=== PATIENT | male | born 1970 | race Caucasian/White ===

== ENCOUNTER 2020-04-06 00:29 | Outpatient (CLI) | payer BC, SELFPAY ==
[2020-04-06 20:03] LABS: SARS-CoV-2 RNA PCR Negative
== END 2020-04-06 00:30 | disposition home or self-care (01) ==
LOC: ANHCOVIDDT 00:29
PROVIDERS: PCP Emergency Medicine; Visit Provider Internal Medicine Gastroenterology
DX: Z01.812 Encounter for preprocedural laboratory examination (principal); Z20.828 Contact with and (suspected) exposure to other viral communicable diseases
CPT/HCPCS: 87635; C9803; U0003

== ENCOUNTER 2020-04-08 01:03 | Day surgery (SDC) | payer BC, SELFPAY ==
[2020-03-30 09:58] VITALS: BMI 30.4
--- NOTE | 2020-04-08 09:44 | PM.HPGS ---
History of Present Illness History of Present Illness Consent: Risks, benefits, and alternatives have been discussed and questions answered. Patient agrees to proceed with procedure. Chief complaint: Neoplasm Screening Narrative: Yoshi Swan Sr. is a 49 year old W male referred for his 1st screening colonoscopy. Patient is asymptomatic there is no family history of colon cancer. [facility] Past Medical History Medical History (Updated 04/08/20 @ 09:45 by Colten Aponte MD) Diabetes Social History Social History Smoking status: Never smoker Alcohol intake: never Substance use: never Substance use type: does not use Living arrangements: with family Spiritual care concerns: No Meds Home Medications and Allergies Home Medications Medication Instructions Recorded Confirmed Type metformin 1,000 mg PO DAILY 03/30/20 03/30/20 History Allergies Allergy/AdvReac Type Severity Reaction Status Date / Time No Known Allergies Allergy Mild Verified 04/08/20 09:46 Exam Const: Orientation/consciousness: patient oriented x3 Resp: Auscultation: clear to auscultation bilaterally Cardio: Rate: regular rate Rhythm: regular rhythm Heart sounds: no murmurs GI: GI Palp: Yes Soft to palpation, No Tenderness to palpation present (GI), Yes No hepatosplenomegaly present and No Palpable mass present Auscultation: normal bowel sounds Neuro: General: patient oriented x3 and no focal motor deficits Extrem: General: no pedal edema Assessment and Plan Additional Plan screening colonoscopy in average risk patient
[2020-04-08] MEDS: LACTATED RINGERS 1,000 ML 150 ML IV CONT (09:45)
[2020-04-08 09:46] VITALS: BP 169/101; PULSE 81; RESP 18; TEMP 36.4; O2SAT 99; BMI 30.5
--- NOTE | 2020-04-08 10:22 | WPDANESEPPF ---
Anes - Initial Pre Proc Eval Procedure: Operation Date: 04/08/20 10:00 Proposed Procedures p Screening Colonoscopy - Colten Aponte MD Date/Time: 04/08/20 10:22 Surgeon: Colten Aponte MD Pre Op Diagnosis: Neoplasm Screening Patient Data Age: 49 Gender: M Height: 6 ft Weight: 102.1 kg Last Vital Signs Temp 97.5 F L 04/08/20 09:46 Pulse 81 04/08/20 09:46 Resp 18 04/08/20 09:46 BP 169/101 H 04/08/20 09:46 Pulse Ox 99 04/08/20 09:46 Allergies Allergy/AdvReac Type Severity Reaction Status Date / Time No Known Allergies Allergy Mild Verified 04/08/20 09:46 Home Medications Medication Instructions Recorded Confirmed Type metformin 1,000 mg PO DAILY 03/30/20 04/08/20 History Patient hx anesthesia problems: none Family hx anesthesia problems: none [facility] Past Medical History Medical History (Updated 04/08/20 @ 09:45 by Colten Aponte MD) Diabetes Social History Social History Smoking status: Never smoker Alcohol intake: never Substance use: never Substance use type: does not use Living arrangements: with family Spiritual care concerns: No Anes - Eval Final PreProcedure Day of Procedure 04/08/20 10:22 Patient weight: normal Heart: regular rate and rhythm Lungs: clear to auscultation Airway: Mallampati scale class II Neurological: alert and oriented Last oral intake: >/= 8 hours ASA classification: II Emergent: no Anesthetic plan: proceed Anesthesia type and monitoring: general GIVS and standard monitoring Informed Consent: The patient's anesthetic plan and its attendant risks and benefits were discussed with the patient/family/POA. Questions were solicited and answers provided to the satisfaction of the patient/family/POA.
[2020-04-08 10:40] LABS: Glucose Point of Care 180 (65-105)
[2020-04-08 10:54] VITALS: BP 131/78; PULSE 76; RESP 18; O2SAT 96
[2020-04-08 11:04] VITALS: BP 122/77; PULSE 67; RESP 18; O2SAT 98
[2020-04-08 11:14] VITALS: BP 141/89; PULSE 68; RESP 20; O2SAT 99
== END 2020-04-08 11:26 | disposition home or self-care (01) ==
PROVIDERS: PCP Emergency Medicine; Visit Provider Internal Medicine Gastroenterology
PROC: 0DJD8ZZ Inspection of Lower Intestinal Tract, Via Natural or Artificial Opening Endoscopic (ICD-10-PCS; CPT 45378; principal; 2020-04-08 10:00)
DX: Z12.11 Encounter for screening for malignant neoplasm of colon (principal); E11.9 Type 2 diabetes mellitus without complications; Z79.84 Long term (current) use of oral hypoglycemic drugs
CPT/HCPCS: 45378; J2405; J7120

== ENCOUNTER → 2021-09-13 11:41 | Outpatient (CLI) | payer BC, SELFPAY ==
--- NOTE | ~2021-09-13 | XR_ITS ---
XR chest 2V DATE: 09/13/2021 16:59 INDICATION: Cough TECHNIQUE: 2 views COMPARISON: None FINDINGS: Normal heart size. No hilar or mediastinal enlargement. There is patchy infiltrate in the right mid and to a greater extent left lower lung ambriz, suggestin g bilateral pneumonia. No pleural effusion or pulmonary venous congestion or pneumothorax. IMPRESSION: Patchy right mid and left lower lung infiltrates, suggesting bilateral pneumonia Reviewed, dictated and finalized at location A. OGRAPHY SPOTTER IMPRESSION: Patchy right mid and left lower lung infiltrates, suggesting bilate ral pneumonia
== END ==
PROVIDERS: Visit Provider Emergency Medicine
DX: U07.1 COVID-19 (principal); R05.9 Cough, unspecified
CPT/HCPCS: 71046

== ENCOUNTER 2021-10-19 11:35 | Outpatient (CLI) | payer BC, SELFPAY ==
--- NOTE | ~2021-10-19 | MR_ITS ---
EXAMINATION: MR brain/brain stem wo/w con EXAM DATE: 10/19/2021 12:28 INDICATION: Stroke, Facial Paralysis, Dysarthria . TECHNIQUE: Magnetic resonance imaging (MRI) of the brain/brain stem obtained without contrast. Sagit tayler T1, axial diffusion, gradient echo (T2*), T1, T2, FLAIR sequences obtained. Patient was then inj ected with 19 cc intravenous Multihance contrast. Axial and coronal postcontrast T1 weighted sequence s obtained. There is no prior study for comparison. FINDINGS: There is acute infarction in the left periventricular white matter extending toward the sub insular cortex measuring 2 cm, a lacunar infarction. There is mild microangiopathy. No acute intracra nial hemorrhage, brain mass, extra-axial collections or obstructive hydrocephalus. There are no areas of abnormal enhancement on the post contrast images. Orbits are unremarkable. IMPRESSION: Acute left periventricular/basal ganglia lacunar infarction, large for central location. Reviewed, dictated and finalized at location A.
[2021-10-19 12:03] LABS: Estimated Glomerular Filt Rate > 60
== END 2021-10-19 11:36 | disposition home or self-care (01) ==
PROVIDERS: PCP Emergency Medicine; Visit Provider Emergency Medicine
DX: I63.9 Cerebral infarction, unspecified (principal); G83.9 Paralytic syndrome, unspecified; R47.1 Dysarthria and anarthria
CPT/HCPCS: 70553; A9577

== ENCOUNTER → 2022-06-17 07:22 | Outpatient (CLI) | payer BC, SELFPAY ==
--- NOTE | ~2022-06-17 | XR_ITS ---
EXAMINATION: XR chest 2V 06/17/2022 07:48 INDICATION: Cough PROCEDURE: 2 view chest COMPARISON: 09/13/2021 FINDINGS: The lungs are clear. The cardiomediastinal silhouette is within normal limits. There are no pleural effusions. There is no pneumothorax suspected. IMPRESSION: 1: NO ACUTE CARDIOPULMONARY DISEASE. Reviewed, dictated and finalized at location A. [employer]LOADING SUPERVISOR
== END ==
PROVIDERS: PCP Emergency Medicine; Visit Provider Emergency Medicine
DX: U07.1 COVID-19 (principal); R05.9 Cough, unspecified
CPT/HCPCS: 71046

== ENCOUNTER 2024-02-19 08:22 | Day surgery (SDC) | payer OTHER, SELFPAY ==
[2024-02-19] VITALS (10 sets, daily range): BP systolic 128–164; BP diastolic 71–95; PULSE 75–95; RESP 12–20; TEMP 36.6–37.2; O2SAT 94–100
--- NOTE | ~2024-02-19 | US_ITS ---
EXAMINATION: US scrotum doppler DATE: 02/19/2024 11:21 INDICATION: Testicular pain. TECHNIQUE: Grayscale and Doppler ultrasound images of the testes were obtained. COMPARISON: None. FINDINGS: The right testis measures 4.1 x 1.8 x 3.3 cm. The left testis measures 3.8 x 2.0 x 3.7 cm. There is normal vascular flow to both testes. The right epididymis is normal with normal vascular laquita w. The left epididymis is normal with normal vascular flow. There is no varicocele or hydrocele. IMPRESSION: 1. Normal testes. Reviewed, dictated and finalized at location A. IMPRESSION: 1. Normal testes.
--- NOTE | ~2024-02-19 | CT_ITS ---
EXAMINATION: CT abdomen pelvis w con DATE: 02/19/2024 10:30 INDICATION: Right groin pain. TECHNIQUE: Computed tomography (CT) of the abdomen and pelvis was performed with 100 mL Omnipaque 350 intravenous contrast. Automated exposure control and iterative reconstruction technique were employe d. The dose-length product was 1072.85 mGy-cm. COMPARISON: CT pelvis 05/26/2013 FINDINGS: The visualized portions of the lung bases demonstrate minimal atelectasis. No pleural effus ion. The heart size is normal. No pericardial effusion. There is mild bilateral gynecomastia. The gabe er, gallbladder, spleen, pancreas, adrenal glands, and left kidney are normal. There is a delayed rig ht-sided contrast nephrogram. There is a 6 mm stone in right kidney. There is mild right hydronephros is and hydroureter. There is a 6 mm stone in distal right ureter. There is a right inguinal hernia co ntaining fat. There are no dilated loops of bowel. The appendix is normal. There are no pathologicall y enlarged lymph nodes. There is no free intraperitoneal fluid. There are widespread arterial calcifi cations. There is mild thoracic and lumbar spondylosis. IMPRESSION: 1. 6 mm stone in distal right ureter with mild right hydronephrosis and hydroureter. 2. 6 mm nonobstructing right kidney stone. 3. Right inguinal hernia containing fat. Reviewed, dictated and finalized at location A. IMPRESSION: 1. 6 mm stone in distal right ureter with mild right hydronephrosis and hydrour eter. 2. 6 mm nonobstructing right kidney stone. 3. Right inguinal hernia containing fat.
--- NOTE | ~2024-02-19 | XR_ITS ---
EXAMINATION: XR retrograde pyelo w/stent RT DATE: 02/19/2024 15:40 CDT INDICATION: RIGHT STONE EXTRACTION . TECHNIQUE: 4 fluoroscopic images of the right abdomen and pelvis were obtained during right retrograd e pyelography with stone extraction and stent placement, performed by Justin Cooper MD. I wa s not present during the procedure. Fluoroscopy exposure time was 20.5 seconds. Air Kerma 8.97 mGy. D AP [id number] mGym2. COMPARISON: None FINDINGS/IMPRESSION: Fluoroscopic documentation of right retrograde pyelography with stone extraction and stent placement. Please refer to the operative note for complete procedural details . Reviewed, dictated and finalized at location K.
[2024-02-19 09:49] LABS: Basophils Absolute Auto 0.1 K/mm3 (0.0-0.1); Basophils Percent Auto 0.5 % (0.2-1.2); Eosinophils Percent Auto 0.4 % (0-4.4); Hematocrit 42.3 % (42.0-52.0); Hemoglobin 13.9 g/dL (14.0-18.0); Immature Granulocyte Absolute 0.04 K/mm3 (0.00-0.031); Immature Granulocyte Percent A 0.4 % (0-0.5); Lymphocytes Absolute Auto 1.57 K/mm3 (0.9-3.2); Lymphocytes Percent Auto 14.2 % (18.3-44.2); Mean Corpuscular HGB Conc 32.9 g/dl (32-36); Mean Corpuscular Hemoglobin 29.8 pg (26-34); Mean Corpuscular Volume 90.8 fl (80-100); Mean Platelet Volume 11.4 fl (7.4-10.4); Monocytes Absolute Auto 0.6 K/mm3 (0.1-0.6); Monocytes Percent Auto 5.2 % (2.6-8.5); Neutrophils Absolute Auto 8.8 K/mm3 (1.3-6.7); Neutrophils Percent Auto 79.3 % (45.5-73.1); Platelet Count Result 266 k/mm3 (150-375); Red Blood Count 4.66 M/mm3 (4.6-6.20); Red Cell Distribution Width 12.8 % (11.5-14.5); White Blood Count 11.1 K/mm3 (4.5-10.0)
[2024-02-19 09:54] LABS: Add Urine Microscopic? YES; Appearance Urine Clear (Clear); Bacteria Urine None Seen /hpf; Bilirubin Urine Negative (Negative); Blood Urine 2+ (Negative); Color Urine Yellow (Yellow); Glucose Urine UA 3+ mg/dL (Negative); Ketones Urine 3+ mg/dL (Negative); Leukocyte Esterase Ur Negative LEU/UL (Negative); Nitrate Urine Negative (Negative); Non Pathogenic Casts 0-2; Protein Urine Trace mg/dL (Negative); Squamous Epithelial Cell Urine None Seen /hpf (Few); Urobilinogen Urine 0.2 mg/dL (<2.0); WBC Urine 0-5 /hpf (0-3)
[2024-02-19] MEDS: SODIUM CHLORIDE 0.9% IV 1,000 ML 999 ML IV CONT ×2 (09:54→11:37)
[2024-02-19] MEDS: ONDANSETRON INJ 4 MG/2 ML VIAL IV PUSH ×2 (09:55→11:38)
[2024-02-19] MEDS: MORPHINE SULFATE (*CRX) 4 MG/ML INJ IV PUSH (09:56)
[2024-02-19] MEDS: FAMOTIDINE 20 MG/2 ML VIAL IV PUSH (09:59)
[2024-02-19 10:03] LABS: Alanine Aminotransferase 29 U/L (6-50); Albumin Level 5.1 g/dL (3.5-5.1); Alkaline Phosphatase 85 U/L (38-126); Anion Gap 17 mmol/L (4-12); Aspartate Amino Transferase 35 U/L (17-59); Bilirubin,Total 1.3 mg/dL (0.2-1.3); Blood Urea Nitrogen 33 mg/dL (9-20); Calcium 9.7 mg/dL (8.4-10.2); Carbon Dioxide 23 mmol/L (22-30); Chloride 97 mmol/L (98-107); Estimated CRCL calculation 74 ml/min; Estimated Glomerular Filt Rate 58; Glucose 201 mg/dL (65-110); Potassium 4.4 mmol/L (3.4-5.0); Sodium 137 mmol/L (137-145)
--- NOTE | 2024-02-19 10:10 | ED.GENADULT ---
HPI - General Adult General Chief complaint: Nausea/Vomiting/Diarrhea Stated complaint: extreme groin pain Time Seen by Provider: 02/19/24 09:04 History of Present Illness HPI narrative: Yoshi Swan is a 53 y/o male who presents today with reports of being in his normal states of health up until he was at work this AM started to have pain to his scrotum then pain up to his right lower abdomen and right side then started to have nausea / vomiting. He reports hx of DM No previous abdominal surgeries Related Data Home Medications Medication Instructions Recorded Confirmed metformin 1,000 mg tablet 1,000 mg PO DAILY 03/30/20 02/19/24 apixaban 5 mg tablet (Eliquis) 5 mg PO BID 02/19/24 02/19/24 Allergies Allergy/AdvReac Type Severity Reaction Status Date / Time No Known Allergies Allergy Mild Verified 02/19/24 13:41 Review of Systems Review of Systems: CONSTITUTIONAL: Denies fever, chills, or sweats. EYES: Denies visual changes, redness, or discharge. ENT: Denies rhinorrhea, congestion, sore throat, or otalgia. CARDIOVASCULAR: Denies chest pain, palpitations, or edema. RESPIRATORY: Denies cough or dyspnea. GASTROINTESTINAL: Reports right lower abdominal pain, nausea, vomiting, that started this AM SKIN: Denies rash or itching. MUSCULOSKELETAL: Denies back pain, joint pain, or myalgia. NEUROLOGIC: Denies headache, numbness, dizziness, or weakness. PSYCHIATRIC: Denies anxiety or depression. PMFSH Past Medical History Medical History (Updated 02/19/24 @ 14:10 by Wally Romero MD) Diabetes Obesity Social History Social History Smoking status: Never smoker Alcohol intake: never Substance use: never Substance use type: does not use Living arrangements: with family Spiritual care concerns: No Exam Narrative: GENERAL: Well-appearing, well-nourished, and in no acute distress. HEAD: Normocephalic, atraumatic. EYES: PERRLA and EOMI. ENT: Nares clear, no rhinorrhea or epistaxis. Mucous membranes moist. Oropharynx without tonsillar hypertrophy exudate or other lesions. NECK: Supple. No adenopathy or masses. No carotid bruits or JVD CHEST: Clear to auscultation. No respiratory distress. No wheezes rales or rhonchi HEART: Regular rate and rhythm. No murmur heard. Normal peripheral pulses. ABDOMEN: Soft, , nondistended, normal hypoactive bowel sounds. EXTREMITIES: Normal range of motion. No edema. SKIN: Warm, dry, no rash. NEURO: No focal deficits. Alert and oriented x3. PSYCH: Normal mood and affect. Course Vital Signs Vital signs: Vital Signs Temperature 36.6 C 02/19/24 08:33 Pulse Rate 75 02/19/24 08:33 Respiratory Rate 20 02/19/24 08:33 Blood Pressure 164/84 H 02/19/24 08:33 Pulse Oximetry 100 02/19/24 08:33 Oxygen Delivery Room Air 02/19/24 08:33 Temperature 36.8 C 02/19/24 16:23 Pulse Rate 79 02/19/24 17:29 Respiratory Rate 16 02/19/24 17:29 Blood Pressure 137/71 02/19/24 17:29 Pulse Oximetry 98 02/19/24 16:52 Oxygen Delivery Room Air 02/19/24 17:29 Oxygen Flow Rate 8 02/19/24 16:38 Medical Decision Making MDM Narrative Medical decision making narrative: 53 y/o male with sudden onset of scrotum pain/ right lower abdominal pain/ right side pain then nausea/vomiting - conitnues to have active emesis in the ER He states he woke up feeling his normal well self until shortly after arriving to work No previous abdominal surgeries Hypoactive bowel sounds - abdomen soft he states the pain is not reproducible with palpation No scrotal/ testicular swelling Concern for : incarcerated hernia / ureterolithiasis / obstructing ureterolithiasis/ appendicitis/ perforated bowel / SBO / Plan to check labs/ CT while treating him with IV fluids/ antiemetics and pain control CBC- + leukocytosis 11.1 - hemodynamically stable CMP- Anion Gap 17, BUN 33, GFR 58 Lactate 2.4 UA - 3+
[2024-02-19 11:27] LABS: Lactic Acid Reflex 2.4 mmol/L (0.7-2.0); Lipase 180 U/L (23-300)
[2024-02-19] MEDS: HYDROmorphone HCL INJ (*CRX) 1 MG/ML SYR IV PUSH (11:39)
--- NOTE | 2024-02-19 11:43 | PC.NURSE ---
Pt reports oral intake between 0500 and 0545 states he had a little water but threw it up. States he last ate last night at 1800
[2024-02-19 12:45] LABS: Glucose Point of Care 155 mg/dl (65-105)
--- NOTE | 2024-02-19 13:03 | WPDURCON ---
Assessment and Plan Assessment and plan (1) Right ureteral calculus: Code(s): N20.1 - Calculus of ureter Status: Acute Assessment and Plan: proceed with cystoscopy, right retrograde pyelogram, right ureteroscopy with stone extraction, possible laser, stent placement Urology Consult Note HPI Date Seen: 02/19/24 Time Seen: 13:03 Primary Care Provider: Erick Liao MD Consult Narrative Reason for consult: Obstructing 6 mm right ureteral calculus Narrative: Yoshi Swan Sr. is a 53 year old male who presented to the emergency room with right renal colic nausea vomiting. His pain initially started in scrotum. His scrotal ultrasound was negative. CT scan reveals a 6 mm distal right ureteral calculus. He also has another 6 mm right lower pole stone which is nonobstructive in nature. Urinalysis does not appear infected. Given his persistent pain we have opted to proceed with cystoscopy, right retrograde pyelogram, right ureteroscopy with stone extraction, possible laser and stent placement Review of Systems Review of Systems: All systems reviewed & are unremarkable except as noted in HPI and below PMFSH Past Medical History Medical History Diabetes Social History Social History Smoking status: Never smoker Alcohol intake: never Substance use: never Substance use type: does not use Living arrangements: with family Spiritual care concerns: No Meds Home Medications and Allergies Home Medications Medication Instructions Recorded Confirmed Type metformin 1,000 mg tablet 1,000 mg PO DAILY 03/30/20 04/08/20 History Allergies Allergy/AdvReac Type Severity Reaction Status Date / Time No Known Allergies Allergy Mild Verified 02/19/24 08:38 Vital Signs Vital Signs - 24 hr 02/19/24 08:33 02/19/24 09:59 02/19/24 11:41 Temperature 36.6 C Pulse Rate 75 86 94 Respiratory Rate 20 15 12 Blood Pressure 164/84 H 162/94 H 160/90 H Pulse Oximetry 100 100 97 Oxygen Delivery Room Air 02/19/24 12:28 Temperature 37.0 C Pulse Rate 95 Respiratory Rate 16 Blood Pressure 145/93 H Pulse Oximetry 94 Oxygen Delivery Exam Const: General: cooperative Resp: Effort & Inspection: normal respiratory effort Cardio: Rate: regular rate Rhythm: regular rhythm Results Labs 02/19/24 09:34 02/19/24 09:34 Labs: Short CBC 02/19/24 Range/Units 09:34 WBC 11.1 H (4.5-10.0) K/mm3 Hgb 13.9 L (14.0-18.0) g/dL Hct 42.3 (42.0-52.0) % Plt Count 266 (150-375) k/mm3 BMP 02/19/24 09:34 Sodium 137 Potassium 4.4 Chloride 97 L Carbon Dioxide 23 BUN 33 H Creatinine 1.30 Glucose 201 H Calcium 9.7 Liver Function 02/19/24 Range/Units 09:34 Total Bilirubin 1.3 (0.2-1.3) mg/dL AST 35 (17-59) U/L ALT 29 (6-50) U/L Alkaline Phosphatase 85 (38-126) U/L Albumin 5.1 (3.5-5.1) g/dL Urine 02/19/24 Range/Units 09:34 Urine Color Yellow (Yellow) Urine Appearance Clear (Clear) Urine pH 6.0 (5.0-9.0) Ur Specific [place] 1.020 (1.001-1.035) Urine Protein Trace (Negative) mg/dL Urine Glucose (UA) 3+ H (Negative) mg/dL
--- NOTE | 2024-02-19 13:08 | WPDHPUPDATE1 ---
History and Physical Update Update Date/Time: 02/19/24 13:08 History and Physical has been reviewed, including an updated exam of the patient. There are NO changes in the patient's condition. Risks, benefits, and alternatives have been discussed and questions answered. Patient agrees to proceed with procedure.
--- NOTE | 2024-02-19 14:05 | WPDANESEPPF ---
Anes - Initial Pre Proc Eval Procedure: Operation Date: 02/19/24 15:15 Proposed Procedures p Cystoscopy, Right Ureteroscopy, Possible Right Retrograde Pyelogram, Possible Right Stone Extraction, Possible Right Stent Placement, Possible Holmium Laser Procedure - Justin Cooper MD Date/Time: 02/19/24 14:05 Surgeon: Justin Cooper MD Pre Op Diagnosis: extreme groin pain Patient Data Age: 53 Gender: M Height: 1.83 m Weight: 109 kg Last Vital Signs Temp 37.2 C 02/19/24 13:36 Pulse 94 02/19/24 13:36 Resp 14 02/19/24 13:36 BP 150/78 H 02/19/24 13:36 Pulse Ox 100 02/19/24 13:36 O2 Del Method Room Air 02/19/24 13:36 Allergies Allergy/AdvReac Type Severity Reaction Status Date / Time No Known Allergies Allergy Mild Verified 02/19/24 13:41 Home Medications Medication Instructions Recorded Confirmed Type metformin 1,000 mg tablet 1,000 mg PO DAILY 03/30/20 02/19/24 History apixaban 5 mg tablet (Eliquis) 5 mg PO BID 02/19/24 02/19/24 History Laboratory Tests 02/19/24 02/19/24 02/19/24 09:34 11:09 12:42 WBC 11.1 H K/mm3 (4.5-10.0) RBC 4.66 M/mm3 (4.6-6.20) Hgb 13.9 L g/dL (14.0-18.0) Hct 42.3 % (42.0-52.0) MCV 90.8 fl (80-100) MCH 29.8 pg (26-34) MCHC 32.9 g/dl (32-36) RDW 12.8 % (11.5-14.5) Plt Count 266 k/mm3 (150-375) MPV 11.4 H fl (7.4-10.4) Immature Gran % (Auto) 0.4 % (0-0.5) Neut % (Auto) 79.3 H % (45.5-73.1) Lymph % (Auto) 14.2 L % (18.3-44.2) [place] % (Auto) 5.2 % (2.6-8.5) Eos % (Auto) 0.4 % (0-4.4) Baso % (Auto) 0.5 % (0.2-1.2) Lymph # (Auto) 1.57 K/mm3 (0.9-3.2) [place] # (Auto) 0.6 K/mm3 (0.1-0.6) Eos # (Auto) 0.0 K/mm3 (0-0.3) Baso # (Auto) 0.1 K/mm3 (0.0-0.1) Abs Immat Gran (auto) 0.04 H K/mm3 (0.00-0.031) Absolute Neuts (auto) 8.8 H K/mm3 (1.3-6.7) Absolute Nucleated RBC 0.000 K/mm3 (0.0-0.012) Nucleated RBC % 0.0 % (0.0-0.2) Sodium 137 mmol/L (137-145) Potassium 4.4 mmol/L (3.4-5.0) Chloride 97 L mmol/L (98-107) Carbon Dioxide 23 mmol/L (22-30) Anion Gap 17 H mmol/L (4-12) BUN 33 H mg/dL (9-20) Creatinine 1.30 mg/dL (0.7-1.3) Estim Creat Clear Calc 74 ml/min Estimated GFR 58 L (59 - ) Glucose 201 H mg/dL (65-110) POC Capillary Glucose 155 H mg/dl (65-105) Lactic Acid 2.4 H mmol/L (0.7-2.0) Calcium 9.7 mg/dL (8.4-10.2) Total Bilirubin 1.3 mg/dL (0.2-1.3) AST 35 U/L (17-59) ALT 29 U/L (6-50) Alkaline Phosphatase 85 U/L (38-126) Total Protein 8.0 g/dL (6.3-8.2) Albumin 5.1 g/dL (3.5-5.1) Lipase 180 U/L (23-300) Urine Color Yellow (Yellow) Urine Appearance Clear (Clear) Urine pH 6.0 (5.0-9.0) Ur Specific [place] 1.020 (1.001-1.035) Urine Protein Trace mg/dL (Negative) Urine Glucose (UA) 3+ H mg/dL (Negative) Urine Ketones 3+ H mg/dL (Negative) Ur Blood (Man) 2+ H (Negative) Urine Nitrate Negative (Negative) Urine Bilirubin Negative (Negative) Urine Urobilinogen 0.2 mg/dL (<2.0) Leukocyte Esterase Rfl Negative KIMBERLY/UL (Negative) Urine RBC 11-20 H /hpf (0-2) Urine WBC 0-5 /hpf (0-3) Ur Squamous Epith Cells None seen /hpf (Few) Urine Bacteria None seen /hpf Urine Casts 0-2 Patient hx anesthesia problems: none Family hx anesthesia problems: none Results Review: All pre-operative results and documents have been reviewed as part of the
[2024-02-19 14:15] LABS: Reflex Lactic Acid Yes or No Add Lactic
--- NOTE | 2024-02-19 14:23 | SUR.PREOP ---
PT IS ON ELIQUIS, MISS THIS AM DOSE. DR DAVIS AWARE. NO ORDERS AT THIS TIME.
[2024-02-19] MEDS: ceFAZolin 2 GM/D5W 50 ML 2 GM/50 ML BAG IVPB (16:05)
[2024-02-19] MEDS: LIDOCAINE HCL 2% GEL UROJET 10 ML PKG MUCOUS MEM (16:15)
--- NOTE | 2024-02-19 16:17 | W.PM.PROC2 ---
Procedure Note - Detailed Date of Procedure 02/19/24 Pre-op Diagnosis Right ureteral calculus with colic Post-op Diagnosis Same Procedure Performed Cystoscopy, right retrograde pyelogram, right ureteroscopy with holmium laser, stone extraction, ureteral stent placement 4.8 Hungarian contour Surgeon Justin Cooper MD Anesthesia General Description of Procedure Patient is taken to the operative suite correctly identified. Once anesthesia was obtained was placed in dorsal lithotomy position and prepped and draped usual sterile fashion. Nineteen Hungarian scope was inserted the bladder direct vision. There were no urethral strictures. His prostate has some mild lateral lobe hypertrophy. He also has an elevated median bar/bladder neck. The bladder itself was without any evidence of tumors. The right ureteral orifice was cannulated with the Sensor wire. I dilated the orifice with an 8/10 dilator. Rigid ureteral scope was then inserted. Stone was visualized in too large to retrieve 1 piece. Using a 200 micron fiber the stone was lasered in multiple small pieces. The largest fragments were sent for analysis. Escape basket was used to retrieve these. Pyelogram was then performed to confirm placement of the stent. 4.8 Hungarian contour stent was then placed with the proximal end coiled in the renal pelvis and the distal in the bladder. A near Horan was used to evacuate some of the stone fragments. I should cell state that his intramural ureter was extremely tight. 2% viscous lidocaine was inserted into the urethra. Patient is taken recovery stable condition. We discharged home and follow-up in a week's time for with KUB and stent removal. He also has a known right lower pole stone which be addressed at a later point time. This completes dictation. Please send a copy of op note to my office. Estimated Blood Loss 0 Drains Yes Packing No Pathology Yes Complications No immediate complications Condition Stable Disposition PACU
[2024-02-19] MEDS: LACTATED RINGERS 1,000 ML 30 ML IV CONT ×2 (16:23)
[2024-02-19 17:21] LABS: Glucose Point of Care 99 mg/dl (65-105)
--- NOTE | 2024-02-19 17:43 | SUR.PHASEII ---
1740: patient is dressed, iv dc'd, waiting on ride to arrive.
== END 2024-02-19 18:05 | disposition home or self-care (01) ==
LOC: ANHED 11:44 → ANHSURGERY 13:32
PROVIDERS: Emergency Medicine; Emergency Provider Nurse Practitioner Family; PCP Emergency Medicine; Visit Provider Urology
PROC: (CPT 52352; principal; 2024-02-19 15:15)
DX: N13.2 Hydronephrosis with renal and ureteral calculous obstruction (principal); Z79.01 Long term (current) use of anticoagulants; Z79.84 Long term (current) use of oral hypoglycemic drugs; E66.9 Obesity, unspecified; Z68.32 Body mass index [BMI] 32.0-32.9, adult; N39.0 Urinary tract infection, site not specified
CPT/HCPCS: 52356; 36415; 74177; 74420; 76870; 80053; 81001; 82365; 82948; 83605; 83690; 85025; 88300; 93976; 96361; 96374; 96375; 96376; 99285; C1769; C2617; J0690; J1100; J1170; J2250; J2270; J2405; J2704; J3010; J7030; J7120; Q9966; Q9967

== ENCOUNTER 2024-02-25 09:47 | Outpatient (CLI) | payer OTHER, SELFPAY ==
--- NOTE | ~2024-02-25 | XR_ITS ---
XR abdomen/kub 1V Ordering provider: Justin Cooper MD History: . KIDNEY CALCULI . Comparison: None. FINDINGS: BOWEL: Fecal material in the colon suggestive of constipation. Nonobstructive bowel gas pattern. ORGANOMEGALY: None. SIGNIFICANT PATHOLOGIC CALCIFICATIONS: Stone in the right kidney lower pole. Right double-J stent. OTHER: Left sacroiliitis. No free air is seen under the diaphragm. IMPRESSION: NO ACUTE ABDOMINAL FINDINGS. Stone in the right kidney lower pole with the right double-J stent. Constipation. Reviewed, dictated and finalized at location A.
== END 2024-02-25 09:48 | disposition home or self-care (01) ==
LOC: ANHIMG 09:51
PROVIDERS: PCP Emergency Medicine; Visit Provider Urology
DX: N20.0 Calculus of kidney (principal); K59.00 Constipation, unspecified; Z96.0 Presence of urogenital implants
CPT/HCPCS: 74018

== ENCOUNTER 2024-03-07 16:29 | Outpatient (CLI) | payer OTHER, SELFPAY ==
[2024-03-07 17:09] LABS: INR 1.1; Partial Thromboplastin Time 32.8 Seconds (22.3-36.8); Prothrombin Time 14.2 Seconds (11.1-14.7)
== END 2024-03-07 16:30 | disposition home or self-care (01) ==
LOC: ANHLAB 16:31
PROVIDERS: PCP Emergency Medicine; Visit Provider Urology
DX: Z01.818 Encounter for other preprocedural examination (principal); N20.1 Calculus of ureter
CPT/HCPCS: 36415; 85610; 85730; 87086

== ENCOUNTER 2024-03-12 15:38 | Outpatient (CLI) | payer OTHER, SELFPAY ==
--- NOTE | 2024-03-12 16:09 | ECG_ITS ---
Test Date: 2024-03-12 16:14:37 Measurements Intervals [place] Rate: 79 P: 49 SD: 160 QRS: 32 QRSD: 95 T: 53 QT: 375 QTc: 432 Interpretive Statements SINUS RHYTHM NORMAL ELECTROCARDIOGRAM No previous ECG available for comparison Electronically Signed On 03-13-2024 13:12:32 CDT by Saran Quinteros M.D.
== END 2024-03-12 15:39 | disposition home or self-care (01) ==
LOC: ANHCARD 15:41
PROVIDERS: PCP Emergency Medicine; Visit Provider Anesthesiology
DX: Z01.818 Encounter for other preprocedural examination (principal); E11.9 Type 2 diabetes mellitus without complications
CPT/HCPCS: 93005

== ENCOUNTER 2024-03-14 00:30 | Day surgery (SDC) | payer OTHER, SELFPAY ==
[2024-03-07 15:35] VITALS: BMI 29.8
--- NOTE | 2024-03-07 15:55 | PC.NURSE ---
Report to the Outpatient Waiting Room, entrance under the green pavilion located off [facility], at time _08:00 on date 03/14/24____. Planned Procedure Time: _10:00 .? Time changes happen often and if your time is changed the preop area will call you the afternoon before. - You and your visitor will be asked to self-screen and do not enter if you have any COVID symptoms. Please call surgeon if you need to reschedule. - A mask is optional within the hospital at this time. Patients may have clear liquids (water, carbonated beverages, clear teas, apple juice) until 3 hours prior to surgery with a maximum of 20 ounces. - No food from midnight until time of surgery and no smoking - Infants may have breast milk until 4 hours before surgery, infant formula 6 hours prior to surgery. - Children will be allowed to drink immediately following surgery.? If applicable, please bring a bottle or sippy cup to assist with drinking. Juice, water, soda, and popsicles are readily available.? For infants on formula, please bring formula the day of surgery.? Pacifiers are allowed. Take only the following medications with a SIP of water on the morning of surgery: _Amlodipine and tramadol if needed DO NOT STOP ANY OF YOUR OTHER PRESCRIPTION MEDICATIONS PRIOR TO SURGERY EXCEPT THE FOLLOWING Medications to discontinue per physician ___Per the Office Patient is to stop vitamins and supplements 7 days prior and stop his Eliquis 3 days prior Please no make-up, nail maori, hairspray, perfume, deodorant, or body powder the day of surgery.? No jewelry (including any body piercings) or valuables the day of surgery, leave them at home.? Please take a shower or bath the night before, or the morning of, surgery with an antibacterial soap.? Wear comfortable, loose fitting clothing.? Children are encouraged to wear pajamas. - Jewelry must be removed prior to entering the operating room.? Rings and piercings that are not removed may be cut off. - The hospital will not accept responsibility for valuables.? - Please leave all valuables, including medications, at home the day of surgery. If you are going home after surgery, a licensed national dedicated truck driver must drive you home.? - NO public transportation without another adult if you receive anesthesia. - We recommend that an adult stay with you for 24 hours following discharge. - We also recommend that you do not drive, make important decision, drink alcoholic beverages, or take any drugs that were not prescribed by your health care provider for at least 24 hours after your discharge time. For Pediatric surgeries, we recommend two adults accompany the child home. Follow any additional instructions given to you from your surgeon. Telephone instructions given to _Yoshi and asked if any additional questions and then verbalized understanding. Patient advised to call surgeon office or pre surgery nurse liaison [phone] if any additional questions.
[2024-03-14] VITALS (8 sets, daily range): BP systolic 82–126; BP diastolic 52–79; PULSE 64–82; RESP 10–20; TEMP 36.3–36.6; O2SAT 97–100; BMI 30.3
--- NOTE | ~2024-03-14 | XR_ITS ---
XR abdomen/kub 1V 03/14/2024 08:28 INDICATION: Preop ESWL TECHNIQUE: KUB COMPARISON: 02/25/2024 FINDINGS: Bowel gas pattern is normal. Moderate colonic fecal loading. There is no evidence of free a ir, mass, organomegaly, ascites or obstruction. There is a right renal stone. There is a left pelvic calcification, likely phlebolith. Interval removal of right internal ureteral stent. The bones appear intact. IMPRESSION: 1: Right nephrolithiasis. Reviewed, dictated and finalized at location B. IMPRESSION: 1: Right nephrolithiasis.
--- NOTE | 2024-03-14 07:23 | WPDHPUPDATE1 ---
History and Physical Update Update Date/Time: 03/14/24 07:23 History and Physical has been reviewed, including an updated exam of the patient. There are NO changes in the patient's condition. Risks, benefits, and alternatives have been discussed and questions answered. Patient agrees to proceed with procedure.
[2024-03-14 09:08] LABS: Glucose Point of Care 120 mg/dl (65-105)
--- NOTE | 2024-03-14 09:23 | P.PNAN_ITS ---
Anes - Initial Pre Proc Eval Procedure: Operation Date: 03/14/24 10:00 Proposed Procedures p Right Ureteral Extracorporeal Shock Wave Lithotripsy - Justin Cooper MD Date/Time: 03/14/24 09:23 Surgeon: Justin Cooper MD Pre Op Diagnosis: right ureteral stone Patient Data Age: 53 Gender: M Height: 1.83 m Weight: 99.79 kg Last Vital Signs O2 Del Method Room Air 03/07/24 15:35 Allergies Allergy/AdvReac Type Severity Reaction Status Date / Time nickel AdvReac Intermediate Rash Verified 03/14/24 09:18 Home Medications Medication Instructions Recorded Confirmed Type apixaban 5 mg tablet (Eliquis) 5 mg PO BID 02/19/24 03/07/24 History tramadol 50 mg tablet 50 mg PO Q6H PRN pain #20 tabs 02/19/24 03/07/24 Rx Adults Multivitamin 1 tab-cap PO DAILY 03/07/24 03/07/24 History amlodipine 10 mg tablet 10 mg PO DAILY 03/07/24 03/14/24 History cyanocobalamin (vitamin B-12) 5,000 mcg sublingual DAILY 03/07/24 03/07/24 History 5,000 mcg sublingual tablet (Vitamin B-12) glucosamine-chondroitin 250 mg-200 1 tablet PO DAILY 03/07/24 03/07/24 History mg tablet (Osteo Bi-Flex) irbesartan 300 mg tablet 300 mg PO DAILY 03/07/24 03/07/24 History metformin 500 mg tablet,extended 1,000 mg PO HS 03/07/24 03/07/24 History release 24 hr omega-3 fatty acids 900 mg PO DAILY 03/07/24 03/07/24 History rosuvastatin 5 mg tablet 5 mg PO HS 03/07/24 03/07/24 History Laboratory Tests 03/14/24 08:43 POC Capillary Glucose 120 H mg/dl (65-105) Patient hx anesthesia problems: none Family hx anesthesia problems: none Results Review: All pre-operative results and documents have been reviewed as part of the pre- operative evaluation. [facility] Past Medical History Medical History (Updated 03/14/24 @ 09:24 by Kemar Sotelo DO) CVA (cerebral vascular accident) 2021 Diabetes Hypertension Obesity Social History Social History Smoking status: Never smoker Alcohol intake: current Alcohol use details: once a month Substance use: never Substance use type: does not use Living arrangements: with family Spiritual care concerns: No Anes - Eval Final PreProcedure Day of Procedure 03/14/24 09:23 Patient weight: overweight Heart: regular rate and rhythm Lungs: clear to auscultation Airway: Mallampati scale class II Neurological: alert and oriented Last oral intake: >/= 8 hours ASA classification: III Emergent: no Anesthetic plan: proceed Anesthesia type and monitoring: general LMA and standard monitoring Results Review: All pre-operative results and documents have been reviewed as part of the pre- operative evaluation. Informed Consent: The patient's anesthetic plan and its attendant risks and benefits were discussed with the patient/family/POA. Questions were solicited and answers provided to the satisfaction of the patient/family/POA.
[2024-03-14] MEDS: LACTATED RINGERS 1,000 ML 30 ML IV CONT (09:28)
[2024-03-14] MEDS: ceFAZolin 2 GM/D5W 50 ML 2 GM/50 ML BAG IVPB (10:20)
--- NOTE | 2024-03-14 10:54 | W.PM.PROC2 ---
Procedure Note - Detailed Date of Procedure 03/14/24 Pre-op Diagnosis right renal stone Post-op Diagnosis Same Procedure Performed Lithotripsy of right renal calculus Surgeon Justin Cooper MD Anesthesia General Description of Procedure Patient was taken the operative suite correctly identified. Once anesthesia was obtained the stone was localized in both planes. Two thousand five hundred shocks given the stone. Patient tolerated procedure well without any complications and was taken recovery stable condition. A follow-up in 7-10 days with KUB. This completes dictation. Please send a copy of op note to my office Estimated Blood Loss 0 Drains No Packing No Pathology None sent Complications No immediate complications Condition Stable Disposition PACU
[2024-03-14 11:14] LABS: Glucose Point of Care 92 mg/dl (65-105)
== END 2024-03-14 12:41 | disposition home or self-care (01) ==
PROVIDERS: PCP Emergency Medicine; Visit Provider Urology
PROC: (CPT 50590; principal; 2024-03-14 10:00)
DX: N20.0 Calculus of kidney (principal); I10 Essential (primary) hypertension; E11.9 Type 2 diabetes mellitus without complications; Z86.73 Personal history of transient ischemic attack (TIA), and cerebral infarction without residual deficits; E66.9 Obesity, unspecified; Z68.30 Body mass index [BMI] 30.0-30.9, adult; Z79.01 Long term (current) use of anticoagulants; Z79.84 Long term (current) use of oral hypoglycemic drugs
CPT/HCPCS: 50590; 36415; 74018; 82948; 85610; 85730; 87086; 93005; J0690; J2250; J2405; J2704; J3010; J7120

== ENCOUNTER 2024-04-04 10:43 | Outpatient (CLI) | payer OTHER, SELFPAY ==
--- NOTE | ~2024-04-04 | XR_ITS ---
XR abdomen/kub 1V Ordering provider: Justin Cooper History: . RT SIDE CALCIUM KIDNEY STONE . Comparison: None. FINDINGS: BOWEL: Nonobstructive bowel gas pattern. ORGANOMEGALY: None. SIGNIFICANT PATHOLOGIC CALCIFICATIONS: Tiny stone in the right kidney lower pole. OTHER: No free air is seen under the diaphragm. IMPRESSION: NO ACUTE ABDOMINAL FINDINGS. Tiny stone in the right kidney lower pole. Reviewed, dictated and finalized at location A.
== END 2024-04-04 10:44 | disposition home or self-care (01) ==
LOC: ANHIMG 10:44
PROVIDERS: PCP Emergency Medicine; Visit Provider Urology
DX: N20.0 Calculus of kidney (principal)
CPT/HCPCS: 74018